=== PATIENT | male | born 1985 | race Caucasian/White ===

== ENCOUNTER 2017-11-22 11:03 | Emergency (ER) | payer OTHER ==
[~2017-11-22] VITALS: Ht 177.8 cm; Wt 90.7 kg
[~2017-11-22 11:03] MED LIST: ALBUTEROL0.09 MG/A1 INH; AUGMENTIN 875 M1 TAB PO; PREDNICOT10 MG PO; PREDNISONE10 M2 PO; PREDNISONE50 MG PO; ROBITUSSIN W/CO10 ML PO; ZITHROMAX Z-PA250 M1 PO
[2017-11-22 11:25] VITALS: BP 120/76
== END 2017-11-22 11:55 | disposition admitted as inpatient to this hospital (09) ==
LOC: ERH 11:03
DX: F41.9 Anxiety disorder, unspecified (principal)
CPT/HCPCS: 93005; 93010; 99281